=== PATIENT | male | born 1960 | race African-American/Black ===

== ENCOUNTER 2023-05-04 12:24 | Emergency (ER) | payer MEDICAID ==
[~2023-05-04] VITALS: Ht 170.2 cm; Wt 67.0 kg
[2023-05-04] MEDS: METHYLPREDNISOLONE SOD SUCC 125MG/2ML (ACT-O-VIAL) IV STA (13:03)
[2023-05-04] MEDS: ALBUTEROL (0.083%) 2.5MG/3ML NEB HHN STA (13:13)
[2023-05-04 13:16] LABS: HEMATOCRIT. 45.5 % (42.0-52.0); HEMOGLOBIN. 15.1 g/dL (14.0-18.0); MEAN CORPUSCULAR HEMOGLOBIN 29.8 pg (28.0-32.0); MEAN CORPUSCULAR HGB CONC 33.1 g/dL (31.0-37.0); MEAN PLATELET VOLUME 8.3 fl (7.4-10.4); PLATELET 190 x1000/uL (130-400); RED BLOOD CELL COUNT 5.06 mill/uL (4.7-6.1); WHITE BLOOD COUNT 18.6 x1000/uL (4.5-11.0)
[2023-05-04 13:20] VITALS: PULSE 84; RESP 20; O2SAT 97
[2023-05-04 13:28] LABS: DIFFERENTIAL COMMENT 1
[2023-05-04 13:35] LABS: ALANINE AMINOTRANSFERASE 42 IU/L (10-49); ALBUMIN 4.5 g/dL (3.2-4.8); ASPARTATE AMINOTRANSFERASE 51 IU/L (<34); BILIRUBIN TOTAL 0.3 mg/dL (0.1-1.0); CALCIUM 9.2 mg/dL (8.7-10.4); CARBON DIOXIDE 27 mEq/L (21-32); CHLORIDE 108 mEq/L (98-107); CREATININE 1.1 mg/dL (0.6-1.3); GLUCOSE 97 mg/dL (70-105); POTASSIUM 4.3 mEq/L (3.5-5.1); SODIUM 142 mEq/L (136-145); UREA NITROGEN BLOOD 24 mg/dL (9-23)
[2023-05-04 13:44] LABS: TROPONIN I HIGH SENSITIVITY < 4 ng/L (3.0-53)
[2023-05-04 14:24] LABS: ANISOCYTOSIS 1+; PLATELET ESTIMATE NORMAL
[2023-05-04] MEDS: IOHEXOL-350 100 ML BOTTLE ONE (15:23)
[2023-05-04 17:01] VITALS: TEMP 98.4
[2023-05-04] MEDS ORDERED: IOHEXOL-350 100 ML BOTTLE ONE (19:04)
[2023-05-04 19:27] VITALS: BP 115/68; PULSE 79; RESP 18
== END 2023-05-04 19:30 | disposition home or self-care (01) ==
LOC: ER 12:24
DX: R06.02 Shortness of breath (principal); J45.909 Unspecified asthma, uncomplicated; Z85.9 Personal history of malignant neoplasm, unspecified
CPT/HCPCS: 80053; 83880; 85025; 85379; 84484; 36415; 71045; 71275; 94640; 93005; 96374; 99285; Q9967; J2930; Z7610 ×3